=== PATIENT | male | born 1960 | race Caucasian/White ===

== ENCOUNTER 2018-04-03 18:36 | Emergency (ER) | payer MEDICAID ==
[2018-04-03 18:42] VITALS: RESP 20; TEMP 99.3
--- NOTE | 2018-04-03 19:12 | C.PDOC ---
History Of Present Illness 57-year-old male, PMHx includes Hypertension, presents to the emergency department with complaints of finger numbness. Patient states he is experiencing numbness to pinky and ring finger for the past several days. Patient works long hours sitting at a computer. His elbows are often resting on a table. He notes that he was scared that he may be having "a stroke." prompting visit. He denies any other numbness/weakness, nausea/vomiting, facial droop, visual changes, slurred speech. No other complaints at this time. Chief Complaint (Nursing): Finger,Hand,&Wrist History Per: Patient History/Exam Limitations: no limitations Current Symptoms Are (Timing): Still Present Severity: Moderate Past Medical History Reviewed: Historical Data, Nursing Documentation, Vital Signs Vital Signs: Last Vital Signs Temp 99.3 F 04/03/18 18:41 Pulse 69 04/03/18 20:08 Resp 20 04/03/18 20:08 BP 159/92 H 04/03/18 20:08 Pulse Ox 99 04/04/18 04:40 Family History: States: No Known Family Hx - Social History Hx Tobacco Use: Yes Hx Alcohol Use: No Hx Substance Use: No - Immunization History Hx Tetanus Toxoid Vaccination: No Hx Influenza Vaccination: Yes Hx Pneumococcal Vaccination: No Review Of Systems Constitutional: Negative for: Fever, Chills Cardiovascular: Negative for: Chest Pain, Palpitations Respiratory: Negative for: Shortness of Breath Gastrointestinal: Negative for: Nausea, Vomiting Musculoskeletal: Negative for: Neck Pain, Back Pain Skin: Negative for: Rash Neurological: Positive for: Numbness (numbness in right 4th and 5th digits.). Negative for: Weakness, Incoordination, Change in Speech, Altered Mental Status , Headache, Dizziness Physical Exam - Physical Exam Appears: Non-toxic, No Acute Distress Skin: Normal Color, Warm, Dry, No Rash Head: Atraumatic, Normacephalic Eye(s): bilateral: Normal Inspection, PERRL, EOMI Nose: Normal Oral Mucosa: Moist Lips: Normal Appearing Neck: Normal ROM Chest: Symmetrical Cardiovascular: Rhythm Regular, No Murmur Respiratory: Normal Breath Sounds, No Accessory Muscle Use Gastrointestinal/Abdominal: Soft, No Tenderness Back: Normal Inspection Extremity: Normal ROM, No Deformity Neurological/Psych: Oriented x3, Normal Speech, Normal Cranial Nerves (II-XII intact), Normal Reflexes, Other (Decreased sensation to the right 4th and 5th digits, with decreased motor strength upon spreading digits. ) ED Course And Treatment ECG: Interpreted By Me, Viewed By Me ECG Rhythm: Sinus Tachycardia Interpretation Of ECG: No ectopy. Normal axis. Rate From EC O2 Sat by Pulse Oximetry: 99 (RA) Pulse Ox Interpretation: Normal Medical Decision Making Medical Decision Making: Impression: ulnar nerve neuropraxia Recommended ice pack and NSAID use for pts symptoms, and outpt follow up with PMD/clinic. Pt instructed to return for any new or worsening symptoms. All questions answered. Disposition - Disposition Referrals: [facility] [Outside] Disposition: HOME/ ROUTINE Disposition Time: 04:40 Condition: GOOD Prescriptions: Atenolol/Chlorthalidone [Atenolol-Chlorthalidone 50-25] 1 each PO DAILY #14 tablet Naproxen [Naprosyn] 500 mg PO BID #20 tablet Instructions: High Blood Pressure in Adults, Low Salt Diet, Peripheral Neuropathy (DC) Forms: [employer] (Malay) Print Language: TANZANIAN - Clinical Impression Clinical Impression: Peripheral neuropathy - Scribe Statement The provider has reviewed the documentation as recorded by the Scribe (Kandis Breaux) All medical record entries made by the Scribe were at my direction and personally dictated by me. I have reviewed the chart and agree that the record accurately reflects my personal performance of the history, physical exam, medical decision making, and the department course for this patient. I have also personally directed, reviewed, and agree with the discharge instructions and disposition.
[2018-04-03 20:10] VITALS: BP 159/92; PULSE 69
[2018-04-04 04:40] VITALS: O2SAT 99
--- NOTE | 2018-04-04 17:14 | CARD ---
APPROVED REPORT EKG Measurement Heart [id number] <Conclusion> Sinus tachycardia Biatrial enlargement Abnormal ECG
== END 2018-04-03 20:08 | disposition home or self-care (01) ==
LOC: C.ER 18:36
DX: G62.9 Polyneuropathy, unspecified (principal); I10 Essential (primary) hypertension; Z72.0 Tobacco use

== ENCOUNTER 2018-05-06 18:53 | Emergency (ER) | payer MEDICAID ==
--- NOTE | 2018-05-06 20:00 | C.PDOC ---
History Of Present Illness 58 year old male presents to the ED c/o numbness, tingling over the right 5th digit for over the past couple of weeks. Patient states he uses the computer a lot. Patient was seen in the ED on 04/03/19 for similar symptoms. Patient denies slurred speech, visual changes, nausea, vomit, dizziness, weakness. Has also been non compliant with his blood pressure medication. Time Seen by Provider: 05/06/18 19:59 Chief Complaint (Nursing): Upper Extremity Problem/Injury History Per: Patient History/Exam Limitations: no limitations Onset/Duration Of Symptoms: Days Current Symptoms Are (Timing): Still Present Quality: Other Recent travel outside of the [place]: No Additional History Per: Patient Past Medical History Reviewed: Historical Data, Nursing Documentation, Vital Signs Vital Signs: Last Vital Signs Temp 98.6 F 05/06/18 19:11 Pulse 96 H 05/06/18 19:11 Resp 18 05/06/18 19:11 BP 192/120 H 05/06/18 19:46 Pulse Ox 97 05/06/18 20:26 - Medical History PMH: HTN Surgical History: No Surg Hx Family History: States: Unknown Family Hx - Social History Hx Tobacco Use: Yes Hx Alcohol Use: No Hx Substance Use: No - Immunization History Hx Tetanus Toxoid Vaccination: No Hx Influenza Vaccination: Yes Hx Pneumococcal Vaccination: No Review Of Systems Constitutional: Negative for: Fever, Chills Cardiovascular: Negative for: Chest Pain, Palpitations Respiratory: Negative for: Cough, Shortness of Breath Gastrointestinal: Negative for: Nausea, Vomiting, Abdominal Pain Neurological: Positive for: Numbness. Negative for: Weakness Physical Exam - Physical Exam Appears: Non-toxic, No Acute Distress Skin: Warm, Dry Head: Normacephalic Eye(s): bilateral: Normal Inspection Oral Mucosa: Moist Neck: Supple Chest: Symmetrical Cardiovascular: Rhythm Regular Respiratory: No Rales, No Rhonchi, No Wheezing Gastrointestinal/Abdominal: Soft, No Tenderness, No Guarding, No Rebound Extremity: No Tenderness, Capillary Refill (< 2 seconds), No Swelling Extremity: Bilateral: Atraumatic, Normal Color And Temperature, Normal ROM Pulses: Left Radial: Normal, Right Radial: Normal Neurological/Psych: Oriented x3, Normal Speech, Normal Motor (equal strenght bilaterally), Normal Sensation (decreased sensation over palmar aspect right 5th digit, decreased 2 point discrimination over same 5th digit including hypothenar eminence and ulnar distribution) Gait: Steady ED Course And Treatment O2 Sat by Pulse Oximetry: 97 (ON RA) Pulse Ox Interpretation: Normal Progress Note: Patient refused blood work or CT scan of his head and neck. Patient staets he prefers to follow up with PMD. Disposition Counseled Patient/Family Regarding: Studies Performed, Diagnosis, Need For Followup - Disposition Referrals: Jovanni Engel MD [Staff Provider] - Disposition: HOME/ ROUTINE Disposition Time: 20:00 Condition: FAIR Additional Instructions: Please follow up with your doctor and neurologist Prescriptions: Atenolol/Chlorthalidone [Atenolol-Chlorthalidone 50-25] 1 each PO DAILY #15 tablet Instructions: Peripheral Neuropathy (DC), Paresthesias (DC), High Blood Pressure (DC) Forms: [employer] (Wolof) - Clinical Impression Clinical Impression: Peripheral neuropathy, Paresthesia, Hypertension - Scribe Statement The provider has reviewed the documentation as recorded by the Scribe Chandrakant Curtis All medical record entries made by the Scribe were at my direction and personally dictated by me. I have reviewed the chart and agree that the record accurately reflects my personal performance of the history, physical exam, medical decision making, and the department course for this patient. I have also personally directed, reviewed, and agree with the discharge instructions and disposition.
[2018-05-06 22:22] VITALS: PULSE 71; RESP 18; TEMP 98.6; O2SAT 97
[2018-05-06 22:33] VITALS: BP 178/109
== END 2018-05-06 22:10 | disposition home or self-care (01) ==
LOC: C.ER 18:53
DX: G62.9 Polyneuropathy, unspecified (principal); R20.2 Paresthesia of skin; I10 Essential (primary) hypertension